=== PATIENT | female | born 1980 ===

== ENCOUNTER 2020-01-19 19:22 | Emergency (ER) | payer MEDICAID ==
[~2020-01-19] VITALS: Ht 160 cm; Wt 52.2 kg
--- NOTE | 2020-01-19 19:55 | NUR ---
Female co op accompanied female patient for Dr. Burnette.
[2020-01-19 20:04] VITALS: BP 132/62
--- NOTE | 2020-01-19 20:04 | NUR ---
Patient discharged to home in stable condition. Written and verbal after care instructions given. Patient verbalizes understanding of instructions. Stressed follow up or return to ER for worsening s/s.
== END 2020-01-19 20:05 | disposition home or self-care (01) ==
LOC: ER 19:22
DX: K64.4 Residual hemorrhoidal skin tags (principal)
CPT/HCPCS: A4663

== ENCOUNTER 2021-05-02 19:20 | Emergency (ER) | payer MEDICAID ==
[~2021-05-02] VITALS: Ht 160 cm; Wt 53.5 kg
--- NOTE | 2021-05-02 20:43 | NUR ---
DR. GRANT AT BEDSIDE FOR MSE.
[2021-05-02 21:16] LABS: HEMATOCRIT 31.8 % (31.2-41.9); MEAN CORPUSCULAR HEMOGLOBIN 25.8 uug (24.7-32.8); MEAN CORPUSCULAR VOLUME 79.4 fL (75.5-95.3); PLATELET COUNT (AUTO) 369 K/uL (179-408)
[2021-05-02 21:21] LABS: CREATININE 0.8 mg/dL (0.6-1.3); POTASSIUM 3.7 mmol/L (3.5-5.1)
[2021-05-02 21:27] LABS: BILIRUBIN,DIRECT 0.1 mg/dL (0.0-0.2); BILIRUBIN,TOTAL 0.2 mg/dL (0.2-1.0); TOTAL PROTEIN, SERUM 7.9 g/dL (6.4-8.2)
[2021-05-02] MEDS ORDERED: PANTOPRAZOLE SODIUM 40 MG TABLET.DR PO ONE ×2 (22:00)
[2021-05-03] MEDS ORDERED: OMEP40CA21 PO (00:56)
[2021-05-03 01:02] VITALS: BP 118/80
== END 2021-05-03 01:03 | disposition home or self-care (01) ==
LOC: ER 19:20
DX: R07.81 Pleurodynia (principal); K21.9 Gastro-esophageal reflux disease without esophagitis; R00.1 Bradycardia, unspecified
CPT/HCPCS: 36415; 70030-TC; 71045; 85025; 93005; A4663

== ENCOUNTER 2021-05-31 15:15 | Emergency (ER) | payer MEDICAID ==
[~2021-05-31] VITALS: Ht 160 cm; Wt 52.2 kg
[~2021-05-31 15:15] MED LIST: OMEP40CA21 PO
[2021-05-31] MEDS: ALBUTEROL SULFATE 2.5 MG/3 ML NEBU NEB ONE (16:05)
[2021-05-31] MEDS ORDERED: EPINEPHRINE 1 MG/1 ML AMP ONE (16:11)
[2021-05-31] MEDS ORDERED: predniSONE 10 MG TABLET ONE (16:11)
[2021-05-31] MEDS ORDERED: predniSONE 50 MG TABLET ONE (16:11)
[2021-05-31] MEDS ORDERED: diphenhydrAMINE 50 MG CAPSULE ONE (16:11)
[2021-05-31] MEDS: predniSONE 10 MG TABLET PO ONE (16:15)
[2021-05-31] MEDS: EPINEPHRINE 1 MG/1 ML AMP IM ONE (16:15)
[2021-05-31] MEDS: diphenhydrAMINE 50 MG CAPSULE PO ONE (16:15)
[2021-05-31] MEDS ORDERED: ALBUTEROL SULFATE 2.5 MG/3 ML NEBU ONE (16:16)
--- NOTE | 2021-05-31 16:41 | NUR ---
PATIENT HERE FOR ITCHING, COUGHING, WHEEZING AND "HIVES". MEDS GIVEN ORDERED. PATIENT NOW STATES "I FEEL MUCH BETTER". VSS.
[2021-05-31] MEDS ORDERED: PRED20TA PO (16:56)
[2021-05-31] MEDS ORDERED: EPIN0.3P3 IJ (16:56)
--- NOTE | 2021-05-31 18:19 | NUR ---
dr yuan at bedside speaking to patient. DC, Rx AND FOLLOW UP INSTRUCTIONS GIVEN AND EXPLAINED TO PATIENT WHO STATES SHE UNDERSTANDS ALL INSTRUCTIONS HIVES, ITCHING AND WHEEZING ARE NOW ALL RESOLVED
[2021-05-31 18:20] VITALS: BP 119/76
== END 2021-05-31 18:21 | disposition home or self-care (01) ==
LOC: ER 15:15
DX: T78.2XXA Anaphylactic shock, unspecified, initial encounter (principal); R11.0 Nausea; R19.7 Diarrhea, unspecified; L50.0 Allergic urticaria; Z20.822 Contact with and (suspected) exposure to COVID-19; Z91.013 Allergy to seafood
CPT/HCPCS: A4663; J0171; J7512; Q0163

== ENCOUNTER 2021-06-04 14:41 | Emergency (ER) | payer MEDICAID ==
[~2021-06-04] VITALS: Ht 160 cm; Wt 52.2 kg
[~2021-06-04 14:41] MED LIST changes: +EPIN0.3P3 IJ; +PRED20TA PO
[2021-06-04] MEDS ORDERED: FAMOTIDINE. 20 MG/2 ML VIAL IV ONE ×2 (16:15→16:49)
[2021-06-04] MEDS ORDERED: diphenhydrAMINE 50 MG/1 ML VIAL IV ONE (16:15)
[2021-06-04] MEDS ORDERED: methylPREDNISolone SOD SUCC 125 MG/2 ML VIAL IV ONE (16:15)
--- NOTE | 2021-06-04 16:44 | NUR ---
1st contact with patient: AOX4, respiration:easy c/o generalized itchiness and rashes. (I am helping out patient's primary ER nurse Monico.)
[2021-06-04] MEDS ORDERED: diphenhydrAMINE 50 MG/1 ML VIAL ONE (16:49)
[2021-06-04] MEDS ORDERED: methylPREDNISolone SOD SUCC 125 MG/2 ML VIAL ONE (16:49)
--- NOTE | 2021-06-04 16:54 | NUR ---
IV line inserted. IV meds given, SBAR to primary nurse Monico Hutson
[2021-06-04] MEDS ORDERED: NEOMY/BACITRA/POLYMYXIN B OINT UD PACKET TP ONE (17:00)
[2021-06-04] MEDS ORDERED: DIPH25CA83 PO (17:14)
[2021-06-04] MEDS ORDERED: PRED50TA PO (17:14)
[2021-06-04] MEDS ORDERED: FAMO40TA71 PO (17:14)
== END 2021-06-04 17:40 | disposition home or self-care (01) ==
LOC: ER 14:43
DX: T78.40XA Allergy, unspecified, initial encounter (principal); X58.XXXA Exposure to other specified factors, initial encounter; Z82.49 Family history of ischemic heart disease and other diseases of the circulatory system; L50.0 Allergic urticaria; Z91.013 Allergy to seafood; R03.0 Elevated blood-pressure reading, without diagnosis of hypertension
CPT/HCPCS: 96374; 96375; 99284; J1200; J2930; J3490; A4663